=== PATIENT | female | born 1975 | race Caucasian/White ===

== ENCOUNTER 2016-04-07 16:34 | Emergency (ER) | payer OTHER ==
[~2016-04-07] VITALS: Ht 160 cm; Wt 77.1 kg
[2016-04-07 16:43] VITALS: BP 112/79
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
[2016-04-07] MEDS ORDERED: CYCLOBENZAPRINE10 MG ORAL (17:07)
[2016-04-07] MEDS ORDERED: IBUPROFEN600 MG ORAL (17:07)
[2016-04-07 17:30] VITALS: BP 112/79
== END 2016-04-07 17:31 | disposition home or self-care (01) ==
LOC: EMR 16:48
DX: S63.502A Unspecified sprain of left wrist, initial encounter (principal); V09.9XXA Pedestrian injured in unspecified transport accident, initial encounter; Y92.481 Parking lot as the place of occurrence of the external cause; M62.838 Other muscle spasm; J45.909 Unspecified asthma, uncomplicated
CPT/HCPCS: 99282